=== PATIENT | female | born 1955 | race Caucasian/White ===

== ENCOUNTER 2016-08-01 08:17 | Inpatient (IN) | payer MEDICARE, MEDICAID ==
[2016-08-01] MEDS ORDERED: Sodium Chloride 0.9% 1,000 ML IV SCH ×2 (09:15→10:45)
[2016-08-01] MEDS ORDERED: Acetaminophen 500 MG Tab PO ONE (10:30)
[2016-08-01] MEDS ORDERED: Iopamidol 612 MG/ML 100 ML Bottle IV PRN (11:10)
[2016-08-01] MEDS ORDERED: Sodium Chloride 0.9% 80 ML IV SCH (11:15)
--- NOTE | 2016-08-01 13:57 | EDM.PDOC ---
ED HPI GENERAL MEDICAL PROBLEM - General Chief Complaint: General Stated Complaint: WEAK/COLD SYMPTOMS Time Seen by Provider: 08/01/16 09:05 Source of Information: Reports: Patient History Limitations: Reports: No Limitations - History of Present Illness INITIAL COMMENTS - FREE TEXT/NARRATIVE: History of present illness: [61-year-old female who is presenting from a fpc with a fever and agitation. It's hard to get any good information from her but the staff report that she's not herself and that something is wrong. They also report that if her seizure medications, she is on Keppra and valproic acid, are elevated but sometimes she will get this way. We aren't unable to get much more history other than she's had a cough lately and a runny nose.] Review of systems: As per history of present illness and below otherwise all systems reviewed and negative. Past medical history: As per history of present illness and as reviewed below otherwise noncontributory. Surgical history: As per history of present illness and as reviewed below otherwise noncontributory. Social history: No reported history of drug or alcohol abuse. Family history: As per history of present illness and as reviewed below otherwise noncontributory. Physical exam: HEENT: Atraumatic, normocephalic, pupils reactive, negative for conjunctival pallor or scleral icterus, mucous membranes moist, throat clear, neck supple, nontender, trachea midline. Lungs: She has poor air movement and her lung sounds clear Heart: S1S2, regular, negative Abdomen: Soft, nondistended, nontender. Negative for masses or hepatosplenomegaly. Negative for costovertebral tenderness. Pelvis: Stable nontender. Genitourinary: Deferred. Rectal: Deferred. Extremities: Atraumatic, negative for cords or calf pain. Neurovascular unremarkable. Neuro: Awake, alert,Exam nonfocal. Diagnostics: [CBC shows an elevated white count urine looks clean chest x-ray does show some bilateral hilar congestion or infiltrate bu a chest abdomen and pelvis CT was done and the radiologist made no mention of evidence for pneumonitis. He does see elevation of the left hemidiaphragm with left basilar compressive/ atelectasis/consolidation influenza A and B are negative. Rapid strep is positive.] Therapeutics: [] Impression: [ Strep pharyngitis Agitation do to fever and illness requiring a higher level of care than can be given in the fpc that she's currently in.] Plan: [ I spoke with Dr. Dutton who will come and see her and admit her.] Definitive disposition and diagnosis as appropriate pending reevaluation and review of above. - Related Data Allergies Allergy/AdvReac Type Severity Reaction Status Date / Time carbamazepine [From Tegretol] Allergy Unknown Agitation Verified 08/01/16 08:46 Home Meds: Home Meds Alendronate Sodium [Alendronate] 70 mg PO ASDIRECTED 06/30/13 [History] Furosemide 20 mg PO DAILY 06/30/13 [History] Multivitamin [Multi-Vitamin Daily] 1 each PO DAILY 06/30/13 [History] Polyethylene Glycol 3350 [MiraLAX] 17 gram PO DAILY 06/30/13 [History] Potassium Chloride [Klor-Con 10] 10 meq PO DAILY 06/30/13 [History] levETIRAcetam [Keppra] 2,000 mg PO BID 09/06/13 [History] Calcium Carbonate/Vitamin D3 [Calcium 600 + Vit D Tablet] 1 tab PO BID 12/04/15 [History] Divalproex Sodium [Divalproex Sodium ER] 750 mg PO BID 12/04/15 [History] Levothyroxine 112 mcg PO ACBREAKFAST 12/04/15 [History] Cephalexin 500 mg PO BID #13 capsule 12/06/15 [Rx] Calcium Carbonate/Vitamin D3 [Calcium 500 + Vit D 400] 1.5 each PO 08/01/16 [ History] Past Medical History - Past Health History Medical/Surgical History: Denies Medical/Surgical History HEENT History: Reports: Hard of Hearing Gastrointestinal History: Reports: Other (See Below) Other Gastrointestinal History: incont Genitourinary History: Reports: Urinary Incontinence Musculoskeletal History: Reports: Osteoporosis Other Musculoskeletal History: recent L knee pain past hip surgery Neurological History: Reports: Seizure Other Neuro History: jmild mental retarnation Psychiatric History: Reports: Developmental Delay Endocrine/Metabolic History: Reports: Hypothyroidism Social & Family History - Family History Family Medical History: Unobtainable - Tobacco Use Smoking Status *Q: Never Smoker Second Hand Smoke Exposure: No - Caffeine Use Caffeine Use: Reports: None - Alcohol Use Days Per Week of Alcohol Use: 0 - Recreational Drug Use Recreational Drug Use: No ED ROS GENERAL - Review of Systems Review Of Systems: ROS reveals no pertinent complaints other than HPI. ED EXAM, GENERAL - Physical Exam Exam: See Below Course - Vital Signs Last Recorded V/S: Last Vital Signs Temp 38.6 C H 08/01/16 12:10 Pulse 105 H 08/01/16 12:10 Resp 19 08/01/16 12:10 BP 101/60 08/01/16 12:10 Pulse Ox 91 L 08/01/16 12:10 - Orders/Labs/Meds Orders: Active Orders 24 hr Category Date Time Status Chest 1V Frontal [CR] Stat Exams 08/01/16 09:10 Taken Chest Abdomen Pelvis w Cont [CT] Stat Exams 08/01/16 10:59 Taken CULTURE BLOOD [BC] Stat Lab 08/01/16 09:15 Received CULTURE BLOOD [BC] Stat Lab 08/01/16 09:15 Received KEPPRA [REF] Stat Lab 08/01/16 09:44 Received Iopamidol [Isovue-300 (61%)] Med 08/01/16 11:10 Active 100 ml IV . DIRECTED PRN Sodium Chloride 0.9% [Normal Saline] 1,000 ml Med 08/01/16 10:45 Active IV ASDIRECTED Sodium Chloride 0.9% [Normal Saline] 80 ml Med 08/01/16 11:15 Active IV ASDIRECTED Medication Orders Sodium Chloride (Normal Saline) 1,000 mls @ 500 mls/hr IV ASDIRECTED JAIME Last Admin: 08/01/16 10:45 Dose: 500 mls/hr Sodium Chloride (Normal Saline) 80 mls @ 3 mls/sec IV ASDIRECTED JAIME Last Admin: 08/01/16 11:52 Dose: 3 mls/sec Iopamidol (Isovue-300 (61%)) 100 ml IV . DIRECTED PRN PRN Reason: RADIOLOGY EXAM Stop: 08/02/16 11:11 Last Admin: 08/01/16 11:52 Dose: 100 ml Labs: Laboratory Tests 08/01/16 08/01/16 08/01/16 Range/Units 09:15 09:31 09:31 WBC 15.3 H (4.5-11.0) K/uL RBC 4.57 (3.30-5.50) M/uL Hgb 14.6 (12.0-15.0) g/dL Hct 42.1 (36.0-48.0) % MCV 92 (80-98) fL MCH 32 H (27-31) pg MCHC 35 (32-36) % Plt Count 172 (150-400) K/uL Neut % (Auto) 70 H (36-66) % Lymph % (Auto) 10 L (24-44) % [place] % (Auto) 19 H (2-6) % Eos % (Auto) 0 L (2-4) % Baso % (Auto) 0 (0-1) % Sodium 140 (140-148) mmol/L Potassium 3.9 (3.6-5.2) mmol/L Chloride 102 (100-108) mmol/L Carbon Dioxide 26 (21-32) mmol/L Anion Gap 11.9 (5.0-14.0) mmol/L BUN 16 (7-18) mg/dL Creatinine 1.1 H (0.6-1.0) mg/dL Est Cr Clr Drug Dosing 43.30 mL/min Estimated GFR (MDRD) 50 L (>60) Glucose 112 H (74-106) mg/dL Lactic Acid (0.4-2.0) mmol/L Calcium 8.7 D (8.5-10.1) mg/dL Total Bilirubin 0.4 (0.2-1.0) mg/dL AST 24 (15-37) U/L ALT 30 D (12-78) U/L Alkaline Phosphatase 51 (46-116) U/L Total Protein 7.0 (6.4-8.2) g/dL Albumin 3.3 L (3.4-5.0) g/dL Globulin 3.7 H (2.3-3.5) g/dL Albumin/Globulin Ratio 0.9 L (1.2-2.2) Lipase 191 (73-393) U/L TSH, Ultra Sensitive 1.056 (0.358-3.740) uIU/mL Urine Color Urine Appearance Urine pH (4.5-8.0) Ur Specific [place] (1.008-1.030) Urine Protein (NEGATIVE) mg/dL Urine Glucose (UA) (NEGATIVE) mg/dL Urine Ketones (NEGATIVE) mg/dL Urine Occult Blood (NEGATIVE) Urine Nitrite (NEGATIVE) Urine Bilirubin (NEGATIVE) Urine Urobilinogen (NORMAL) mg/dL Ur Leukocyte Esterase (NEGATIVE) Urine RBC (0-5) Urine WBC (0-5) Ur Epithelial Cells Amorphous Sediment Urine Bacteria Urine Mucus Valproic Acid (50.0-100.0) ug/mL 08/01/16 08/01/16 08/01/16 Range/Units 09:31 09:44 10:38 WBC (4.5-11.0) K/uL RBC (3.30-5.50) M/uL Hgb (12.0-15.0) g/dL Hct (36.0-48.0) % MCV (80-98) fL MCH (27-31) pg MCHC (32-36) % Plt Count (150-400) K/uL Neut % (Auto) (36-66) % Lymph % (Auto) (24-44) % [place] % (Auto) (2-6) % Eos % (Auto) (2-4) % Baso % (Auto) (0-1) % Sodium (140-148) mmol/L Potassium (3.6-5.2) mmol/L Chloride (100-108) mmol/L Carbon Dioxide (21-32) mmol/L Anion Gap (5.0-14.0) mmol/L BUN (7-18) mg/dL Creatinine (0.6-1.0) mg/dL Est Cr Clr Drug Dosing mL/min Estimated GFR (MDRD) (>60) Glucose (74-106) mg/dL Lactic Acid 3.2 H (0.4-2.0) mmol/L Calcium (8.5-10.1) mg/dL Total Bilirubin (0.2-1.0) mg/dL AST (15-37) U/L ALT (12-78) U/L Alkaline Phosphatase (46-116) U/L Total Protein (6.4-8.2) g/dL Albumin (3.4-5.0) g/dL Globulin (2.3-3.5) g/dL Albumin/Globulin Ratio (1.2-2.2) Lipase (73-393) U/L TSH, Ultra Sensitive (0.358-3.740) uIU/mL Urine Color Yellow Urine Appearance Clear Urine pH 9.0 H (4.5-8.0) Ur Specific [place] 1.015 (1.008-1.030) Urine Protein Negative (NEGATIVE) mg/dL Urine Glucose (UA) Normal (NEGATIVE) mg/dL Urine Ketones Negative (NEGATIVE) mg/dL Urine Occult Blood Negative (NEGATIVE) Urine Nitrite Negative (NEGATIVE) Urine Bilirubin Negative (NEGATIVE) Urine Urobilinogen Normal (NORMAL) mg/dL Ur Leukocyte Esterase Negative (NEGATIVE) Urine RBC Not seen (0-5) Urine WBC 0-5 (0-5) Ur Epithelial Cells Not seen Amorphous Sediment Rare Urine Bacteria Not seen Urine Mucus Rare Valproic Acid 125.9 H (50.0-100.0) ug/mL Meds: Medications Generic Name Dose Route Start Last Admin Trade Name Freq PRN Reason Stop Dose Admin Sodium Chloride 1,000 mls @ 500 mls/hr 08/01/16 10:45 08/01/16 10:45 Normal Saline IV 500 mls/hr ASDIRECTED JAIME Administration Sodium Chloride 80 mls @ 3 mls/sec 08/01/16 11:15 08/01/16 11:52 Normal Saline IV 3 mls/sec ASDIRECTED JAIME Administration Iopamidol 100 ml 08/01/16 11:10 08/01/16 11:52 Isovue-300 (61%) IV 08/02/16 11:11 100 ml . DIRECTED PRN Administration RADIOLOGY EXAM Discontinued Medications Generic Name Dose Route Start Last Admin Trade Name Freq PRN Reason Stop Dose Admin Acetaminophen 1,000 mg 08/01/16 10:30 08/01/16 10:43 Tylenol Extra Strength PO 08/01/16 10:31 1,000 mg ONETIME ONE Administration Sodium Chloride 1,000 mls @ 250 mls/hr 08/01/16 09:15 08/01/16 09:28 Normal Saline IV 250 mls/hr ASDIRECTED JAIME Administration Departure - Departure Time of Disposition: 13:57 Disposition: Admitted As Inpatient 64 Condition: good Clinical Impression: Agitation, Strep pharyngitis - Discharge Information Forms: ED Department Discharge - My Orders Last 24 Hours: My Active Orders 08/01/16 09:10 Chest 1V Frontal [CR] Stat 08/01/16 09:15 CULTURE BLOOD [BC] Stat CULTURE BLOOD [BC] Stat 08/01/16 09:44 KEPPRA [REF] Stat 08/01/16 10:45 Sodium Chloride 0.9% [Normal Saline] 1,000 ml IV ASDIRECTED 08/01/16 10:59 Chest Abdomen Pelvis w Cont [CT] Stat 08/01/16 11:10 Iopamidol [Isovue-300 (61%)] 100 ml IV . DIRECTED PRN 08/01/16 11:15 Sodium Chloride 0.9% [Normal Saline] 80 ml IV ASDIRECTED - Assessment/Plan Last 24 Hours: My Active Orders 08/01/16 09:10 Chest 1V Frontal [CR] Stat 08/01/16 09:15 CULTURE BLOOD [BC] Stat CULTURE BLOOD [BC] Stat 08/01/16 09:44 KEPPRA [REF] Stat 08/01/16 10:45 Sodium Chloride 0.9% [Normal Saline] 1,000 ml IV ASDIRECTED 08/01/16 10:59 Chest Abdomen Pelvis w Cont [CT] Stat 08/01/16 11:10 Iopamidol [Isovue-300 (61%)] 100 ml IV . DIRECTED PRN 08/01/16 11:15 Sodium Chloride 0.9% [Normal Saline] 80 ml IV ASDIRECTED
--- NOTE | 2016-08-01 14:49 | PCM.HP ---
H&P History of Present Illness - General Date of Service: 08/01/16 Admit Problem/Dx: Admission Diagnosis/Problem Admission Diagnosis/Problem Pneumonia Source of Information: Family, Provider, RN Notes Reviewed History Limitations: Reports: Altered Mental Status (History congenital cognitive impairment) - History of Present Illness Initial Comments - Free Text/Narative: Ms. Gómez is a 61-year-old woman who lives in one of the local group homes, she is admitted to the hospital for further evaluation and management of sepsis and hypoxic respiratory failure secondary to pneumonia. Staff at the [facility] noted that she has been more lethargic with a cough and increased shortness of breath over the past 2 days. This morning was more weak with agitated and brought into the emergency department for further evaluation. She was noted to have significant temperature elevation on initial assessment associated with tachycardia, hypoxia, and hypotension. Laboratory studies showed elevation in white blood cell count and she's also been found to have been elevated lactic acid level. Chest x-ray shows elevated left a diaphragm with question of possible infiltrate. CT scan of the chest shows compressive atelectasis versus consolidation consistent with infection. CT scan of the abdomen showed no obvious abnormalities in her urinalysis is clear with no evidence of infection. Strep screen did come back positive. - Related Data Allergies/Adverse Reactions: Allergies Allergy/AdvReac Type Severity Reaction Status Date / Time carbamazepine [From Tegretol] Allergy Unknown Agitation Verified 08/01/16 08:46 Home Medications: Home Meds Alendronate Sodium [Alendronate] 70 mg PO ASDIRECTED 06/30/13 [History] Furosemide 20 mg PO DAILY 06/30/13 [History] Multivitamin [Multi-Vitamin Daily] 1 each PO DAILY 06/30/13 [History] Polyethylene Glycol 3350 [MiraLAX] 17 gram PO DAILY 06/30/13 [History] Potassium Chloride [Klor-Con 10] 10 meq PO DAILY 06/30/13 [History] levETIRAcetam [Keppra] 2,000 mg PO BID 09/06/13 [History] Calcium Carbonate/Vitamin D3 [Calcium 600 + Vit D Tablet] 1 tab PO BID 12/04/15 [History] Divalproex Sodium [Divalproex Sodium ER] 750 mg PO BID 12/04/15 [History] Levothyroxine 112 mcg PO ACBREAKFAST 09/29/16 [History] Cephalexin 500 mg PO BID #13 capsule 12/06/15 [Rx] Calcium Carbonate/Vitamin D3 [Calcium 500 + Vit D 400] 1.5 each PO 08/01/16 [ History] Past Medical History - Past Health History Medical/Surgical History: Denies Medical/Surgical History HEENT History: Reports: Hard of Hearing Gastrointestinal History: Reports: Other (See Below) Other Gastrointestinal History: incont Genitourinary History: Reports: Urinary Incontinence Musculoskeletal History: Reports: Osteoporosis Other Musculoskeletal History: recent L knee pain past hip surgery Neurological History: Reports: Seizure Other Neuro History: jmild mental retarnation Psychiatric History: Reports: Developmental Delay Endocrine/Metabolic History: Reports: Hypothyroidism Social & Family History - Family History Family Medical History: Unobtainable - Tobacco Use Smoking Status *Q: Never Smoker Second Hand Smoke Exposure: No - Caffeine Use Caffeine Use: Reports: None - Alcohol Use Days Per Week of Alcohol Use: 0 - Recreational Drug Use Recreational Drug Use: No H&P Review of Systems - Review of Systems: Review Of Systems: Unable To Obtain General: Reports: ROS unobtainable (Congenital cognitive impairment) Exam - Exam Exam: See Below - Vital Signs Vital Signs: Last Vital Signs Temp 99.5 F 08/01/16 12:40 Pulse 97 08/01/16 12:40 Resp 19 08/01/16 12:40 BP 107/67 08/01/16 12:40 Pulse Ox 93 L 08/01/16 12:40 Weight: 160 lb - Exam Quality Assessment: DVT Prophylaxis General: Mild Distress, Lethargic HEENT: Conjunctiva Clear, Normal Nasal Septum, Posterior Pharynx Clear, Pupils Equal, Pupils Reactive. No: Mucosa Moist & [place] Neck: Supple, Trachea Midline, +2 Carotid Pulse wo Bruit Lungs: Rales, Rhonchi. No: Crackles, Rub, Stridor, Wheezing Cardiovascular: Regular Rhythm, Normal S1, Normal S2, Tachycardia. No: Irregular Rhythm, Bradycardia, Systolic Murmur, Diastolic Murmur Abdomen: Normal Bowel Sounds, Soft Back Exam: Normal Inspection, Full Range of Motion, NT Extremities: Normal Inspection Skin: Warm, Dry, Intact Psychiatric: Agitated - Patient Data Lab Results last 24 hrs: Laboratory Results - last 24 hr 08/01/16 08/01/16 08/01/16 Range/Units 09:15 09:31 09:31 WBC 15.3 H (4.5-11.0) K/uL RBC 4.57 (3.30-5.50) M/uL Hgb 14.6 (12.0-15.0) g/dL Hct 42.1 (36.0-48.0) % MCV 92 (80-98) fL MCH 32 H (27-31) pg MCHC 35 (32-36) % Plt Count 172 (150-400) K/uL Neut % (Auto) 70 H (36-66) % Lymph % (Auto) 10 L (24-44) % [place] % (Auto) 19 H (2-6) % Eos % (Auto) 0 L (2-4) % Baso % (Auto) 0 (0-1) % Sodium 140 (140-148) mmol/L Potassium 3.9 (3.6-5.2) mmol/L Chloride 102 (100-108) mmol/L Carbon Dioxide 26 (21-32) mmol/L Anion Gap 11.9 (5.0-14.0) mmol/L BUN 16 (7-18) mg/dL Creatinine 1.1 H (0.6-1.0) mg/dL Est Cr Clr Drug Dosing 43.30 mL/min Estimated GFR (MDRD) 50 L (>60) Glucose 112 H (74-106) mg/dL Lactic Acid (0.4-2.0) mmol/L Calcium 8.7 D (8.5-10.1) mg/dL Total Bilirubin 0.4 (0.2-1.0) mg/dL AST 24 (15-37) U/L ALT 30 D (12-78) U/L Alkaline Phosphatase 51 (46-116) U/L Total Protein 7.0 (6.4-8.2) g/dL Albumin 3.3 L (3.4-5.0) g/dL Globulin 3.7 H (2.3-3.5) g/dL Albumin/Globulin Ratio 0.9 L (1.2-2.2) Lipase 191 (73-393) U/L TSH, Ultra Sensitive 1.056 (0.358-3.740) uIU/mL Urine Color Urine Appearance Urine pH (4.5-8.0) Ur Specific [place] (1.008-1.030) Urine Protein (NEGATIVE) mg/dL Urine Glucose (UA) (NEGATIVE) mg/dL Urine Ketones (NEGATIVE) mg/dL Urine Occult Blood (NEGATIVE) Urine Nitrite (NEGATIVE) Urine Bilirubin (NEGATIVE) Urine Urobilinogen (NORMAL) mg/dL Ur Leukocyte Esterase (NEGATIVE) Urine RBC (0-5) Urine WBC (0-5) Ur Epithelial Cells Amorphous Sediment Urine Bacteria Urine Mucus Valproic Acid (50.0-100.0) ug/mL 08/01/16 08/01/16 08/01/16 Range/Units 09:31 09:44 10:38 WBC (4.5-11.0) K/uL RBC (3.30-5.50) M/uL Hgb (12.0-15.0) g/dL Hct (36.0-48.0) % MCV (80-98) fL MCH (27-31) pg MCHC (32-36) % Plt Count (150-400) K/uL Neut % (Auto) (36-66) % Lymph % (Auto) (24-44) % [place] % (Auto) (2-6) % Eos % (Auto) (2-4) % Baso % (Auto) (0-1) % Sodium (140-148) mmol/L Potassium (3.6-5.2) mmol/L Chloride (100-108) mmol/L Carbon Dioxide (21-32) mmol/L Anion Gap (5.0-14.0) mmol/L BUN (7-18) mg/dL Creatinine (0.6-1.0) mg/dL Est Cr Clr Drug Dosing mL/min Estimated GFR (MDRD) (>60) Glucose (74-106) mg/dL Lactic Acid 3.2 H (0.4-2.0) mmol/L Calcium (8.5-10.1) mg/dL Total Bilirubin (0.2-1.0) mg/dL AST (15-37) U/L ALT (12-78) U/L Alkaline Phosphatase (46-116) U/L Total Protein (6.4-8.2) g/dL Albumin (3.4-5.0) g/dL Globulin (2.3-3.5) g/dL Albumin/Globulin Ratio (1.2-2.2) Lipase (73-393) U/L TSH, Ultra Sensitive (0.358-3.740) uIU/mL Urine Color Yellow Urine Appearance Clear Urine pH 9.0 H (4.5-8.0) Ur Specific [place] 1.015 (1.008-1.030) Urine Protein Negative (NEGATIVE) mg/dL Urine Glucose (UA) Normal (NEGATIVE) mg/dL Urine Ketones Negative (NEGATIVE) mg/dL Urine Occult Blood Negative (NEGATIVE) Urine Nitrite Negative (NEGATIVE) Urine Bilirubin Negative (NEGATIVE) Urine Urobilinogen Normal (NORMAL) mg/dL Ur Leukocyte Esterase Negative (NEGATIVE) Urine RBC Not seen (0-5) Urine WBC 0-5 (0-5) Ur Epithelial Cells Not seen Amorphous Sediment Rare Urine Bacteria Not seen Urine Mucus Rare Valproic Acid 125.9 H (50.0-100.0) ug/mL Result Diagrams: 08/01/16 09:31 08/01/16 09:31 [place] Results last 24 hrs: Microbiology 08/01/16 12:52 Group A Streptococcus Rapid Screen - Final Throat Positive Strep A Screen 08/01/16 12:52 Influenza Type A Antigen Screen - Final Nasal, Unspecified NEGATIVE INFLUENZA A VIRUS AG Influenza Type B Antigen Screen - Final NEGATIVE INFLUENZA B VIRUS AG *Q Meaningful Use (ADM) - VTE *Q VTE Criteria *Q: - VTE Risk Assess *Q Each Risk Factor Represents 1 Point: Sepsis, Less than 1 Month, Serious Lung Disease Including Pneumonia, Less than 1 Month Total Score 1 Point Risk Factors: 2 Each Risk Factor Represents 2 Points: Age 60 - 74 Years Total Score 2 Point Risk Factors: 2 Each Risk Factor Represents 3 Points: None Total Score 3 Point Risk Factors: 0 Each Risk Factor Represents 5 Points: None Total Score 5 Point Risk Factors: 0 Venous Thromboembolism Risk Factor Score *Q: 4 - Stroke *Q Stroke Criteria *Q: - AMI *Q AMI Criteria *Q: Problem List Initiated/Reviewed/Updated: Yes Orders Last 24hrs: Active Orders 24 hr Category Date Time Status Cardiac Monitoring [RC] .As Directed Care 08/01/16 14:27 Ordered Chest 1V Frontal [CR] Stat Exams 08/01/16 09:10 Taken Chest Abdomen Pelvis w Cont [CT] Stat Exams 08/01/16 10:59 Taken CULTURE BLOOD [BC] Stat Lab 08/01/16 09:15 Received CULTURE BLOOD [BC] Stat Lab 08/01/16 09:15 Received KEPPRA [REF] Stat Lab 08/01/16 09:44 Received Iopamidol [Isovue-300 (61%)] Med 08/01/16 11:10 Active 100 ml IV . DIRECTED PRN Sodium Chloride 0.9% [Normal Saline] 1,000 ml Med 08/01/16 10:45 Active IV ASDIRECTED Sodium Chloride 0.9% [Normal Saline] 80 ml Med 08/01/16 11:15 Active IV ASDIRECTED Resuscitation Status Routine Resus Stat 08/01/16 14:29 Ordered Medication Orders Sodium Chloride (Normal Saline) 1,000 mls @ 500 mls/hr IV ASDIRECTED JAIME Last Admin: 08/01/16 10:45 Dose: 500 mls/hr Sodium Chloride (Normal Saline) 80 mls @ 3 mls/sec IV ASDIRECTED JAIME Last Admin: 08/01/16 11:52 Dose: 3 mls/sec Iopamidol (Isovue-300 (61%)) 100 ml IV . DIRECTED PRN PRN Reason: RADIOLOGY EXAM Stop: 08/02/16 11:11 Last Admin: 08/01/16 11:52 Dose: 100 ml Assessment/Plan Comment:: ASSESSMENT AND PLAN LEFT LUNG PNEUMONIA WITH SEPSIS-fever with progressive weakness and respiratory symptoms over the past 2 days. White blood cell count is elevated with elevated lactic acid level, tachycardia and hypotension. Will plan to admit to the intensive care unit for more close monitoring and observation as well as increased spectrum antibiotic therapy because of sepsis. -Vigorous IV fluid replacement for management of sepsis -Recheck lactic acid level later today and again in a.m. -Consider use of norepinephrine if blood pressure does not respond to vigorous fluid replacement -Blood cultures are pending -Broad-spectrum IV antibiotic therapy with Zosyn and levofloxacin HYPOXIC RESPIRATORY FAILURE-secondary to current pneumonia -Supplemental oxygen as needed -Consider use of BiPAP if she experiences further respiratory compromise STREP PHARYNGITIS -Current antibiotic therapy should provide adequate coverage SEIZURE DISORDER -Continue current therapy with Keppra -Hold valproic acid until morning and then restart at a lower dose HYPOTHYROIDISM -Continue outpatient replacement therapy MAINTENANCE ISSUES -DVT prophylaxis; Lovenox 40 mg subcutaneous daily -GI prophylaxis; not indicated -Darnell catheter; not indicated -Nutrition; regular diet -Nicotine dependence; not required CODE STATUS-FULL CODE ADMISSION STATUS-patient will be admitted to inpatient status, expect at least a 2 night hospital stay for evaluation and management of problems as outlined above. At the time of this admission I do not reasonably expected evaluation and management of this problem will require more than a 96 hour hospital stay. DISPOSITION-anticipate discharge to home after the hospital stay. PRIMARY CARE PROVIDER-Dr. Bradley
[2016-08-01] MEDS ORDERED: Ondansetron 4 MG/2 ML SDV IV PRN (15:09)
[2016-08-01] MEDS ORDERED: Magnesium Hydroxide 400 MG/5 ML Susp 30 ML Cup PO PRN (15:09)
[2016-08-01] MEDS ORDERED: Albuterol 0.083% 2.5 MG/3 ML Neb Soln NEB PRN (15:09)
[2016-08-01] MEDS ORDERED: Lactated Ringers 500 ML IV SCH (15:09)
[2016-08-01] MEDS ORDERED: Haloperidol Lactate 5 MG/ML SDV IVPUSH PRN (15:09)
[2016-08-01] MEDS ORDERED: Docusate Sodium 100 MG Cap PO PRN (15:09)
[2016-08-01] MEDS: Piperacillin/Tazobactam/Dext 3.375 GM in Premix Bag 1 BAG IV SCH ×2 (15:32→22:44)
[2016-08-01] MEDS: Albuterol/Ipratropium 3.0-0.5 MG/3 ML Neb Soln NEB SCH ×2 (15:53→22:44)
[2016-08-01] MEDS: Levofloxacin/Dextrose 5%-Water 750 MG in Premix Bag 1 BAG IV SCH (17:00)
[2016-08-01] MEDS: Enoxaparin 40 MG/0.4 ML Syringe SUBCUT SCH (17:06)
[2016-08-01] MEDS: Acetaminophen 325 MG Tab PO PRN (19:23)
[2016-08-01] MEDS ORDERED: Lactated Ringers 1,000 ML IV SCH ×2 (19:30→22:31)
[2016-08-01] MEDS: Melatonin 3 MG Tab PO SCH (22:44)
[2016-08-01] MEDS: levETIRAcetam 250 MG Tab PO SCH (22:44)
[2016-08-02] MEDS: oxyCODONE 5 MG Tab PO PRN ×2 (00:08→20:45)
[2016-08-02] MEDS: Acetaminophen 325 MG Tab PO PRN ×2 (00:08→20:46)
[2016-08-02] MEDS: Piperacillin/Tazobactam/Dext 3.375 GM in Premix Bag 1 BAG IV SCH ×4 (03:49→21:03)
[2016-08-02] MEDS: Albuterol/Ipratropium 3.0-0.5 MG/3 ML Neb Soln NEB SCH ×4 (07:56→20:47)
[2016-08-02] MEDS: Levothyroxine 112 MCG Tab PO SCH (08:27)
[2016-08-02] MEDS: levETIRAcetam 250 MG Tab PO SCH ×2 (08:27→20:47)
[2016-08-02] MEDS: Polyethylene Glycol 3350 Powder 17 GM Packet PO SCH (08:28)
[2016-08-02] MEDS ORDERED: Lactated Ringers 1,000 ML IV SCH (08:30)
--- NOTE | 2016-08-02 09:30 | PCM.PN ---
- General Info Date of Service: 08/02/16 Functional Status: Reports: pain controlled, tolerating diet, urinating - Review of Systems General: Reports: Fever, Weakness Pulmonary: Reports: cough. Denies: sputum, hemoptysis, wheezing Cardiovascular: Reports: No Symptoms Gastrointestinal: Reports: No symptoms Systems Review Comment:: This patient has improved since admission, significant temperature elevation last night but has been afebrile since then. She seems more alert and less agitated. Pressure has been running low this morning prior to that had been within the desired range following fluid resuscitation. - Patient Data Vitals - most recent: Last Vital Signs Temp 98.4 F 08/02/16 05:02 Pulse 80 08/02/16 07:57 Resp 22 H 08/02/16 06:00 BP 84/50 L 08/02/16 06:00 Pulse Ox 90 L 08/02/16 06:00 Weight - most recent: 162 lb I&O - last 24 hours: Intake & Output 08/01/16 08/02/16 08/02/16 22:59 06:59 14:59 Intake Total 1170 1299 Output Total 750 450 Balance 420 849 Lab Results last 24 hrs: Laboratory Results - last 24 hr 08/01/16 08/02/16 08/02/16 Range/Units 20:04 05:10 05:10 WBC 13.5 H (4.5-11.0) K/uL RBC 3.84 (3.30-5.50) M/uL Hgb 12.1 D (12.0-15.0) g/dL Hct 35.9 L (36.0-48.0) % MCV 94 (80-98) fL MCH 32 H (27-31) pg MCHC 34 (32-36) % Plt Count 145 L (150-400) K/uL Neut % (Auto) 66 (36-66) % Lymph % (Auto) 17 L (24-44) % [place] % (Auto) 17 H (2-6) % Eos % (Auto) 0 L (2-4) % Baso % (Auto) 0 (0-1) % Sodium (140-148) mmol/L Potassium (3.6-5.2) mmol/L Chloride (100-108) mmol/L Carbon Dioxide (21-32) mmol/L Anion Gap (5.0-14.0) mmol/L BUN (7-18) mg/dL Creatinine (0.6-1.0) mg/dL Est Cr Clr Drug Dosing mL/min Estimated GFR (MDRD) (>60) Glucose (74-106) mg/dL Lactic Acid 2.9 H 1.5 (0.4-2.0) mmol/L Calcium (8.5-10.1) mg/dL 08/02/16 Range/Units 05:10 WBC (4.5-11.0) K/uL RBC (3.30-5.50) M/uL Hgb (12.0-15.0) g/dL Hct (36.0-48.0) % MCV (80-98) fL MCH (27-31) pg MCHC (32-36) % Plt Count (150-400) K/uL Neut % (Auto) (36-66) % Lymph % (Auto) (24-44) % [place] % (Auto) (2-6) % Eos % (Auto) (2-4) % Baso % (Auto) (0-1) % Sodium 140 (140-148) mmol/L Potassium 3.8 (3.6-5.2) mmol/L Chloride 106 (100-108) mmol/L Carbon Dioxide 25 (21-32) mmol/L Anion Gap 8.6 (5.0-14.0) mmol/L BUN 12 (7-18) mg/dL Creatinine 1.0 (0.6-1.0) mg/dL Est Cr Clr Drug Dosing 47.63 mL/min Estimated GFR (MDRD) 56 L (>60) Glucose 140 H (74-106) mg/dL Lactic Acid (0.4-2.0) mmol/L Calcium 7.4 L (8.5-10.1) mg/dL Med Orders - Current: Current Medications Acetaminophen (Tylenol) 650 mg PO Q4H PRN PRN Reason: Pain (Mild 1-3)/fever Last Admin: 08/02/16 00:08 Dose: 650 mg Albuterol (Proventil Neb Soln) 2.5 mg NEB Q4H PRN PRN Reason: Shortness Of Breath/wheezing Albuterol/Ipratropium (Duoneb 3.0-0.5 Mg/3 Ml) 3 ml NEB QIDRT [facility] Last Admin: 08/02/16 07:56 Dose: 3 ml Docusate Sodium (Colace) 100 mg PO BID PRN PRN Reason: Constipation Enoxaparin Sodium (Lovenox) 40 mg SUBCUT Q24H [facility] Last Admin: 08/01/16 17:06 Dose: 40 mg Haloperidol Lactate (Haldol) 1 mg IVPUSH Q2H PRN PRN Reason: Agitation Levofloxacin/Dextrose 750 mg/ (Premix) 150 mls @ 100 mls/hr IV Q24H [facility] Last Admin: 08/01/16 17:00 Dose: 100 mls/hr Piperacillin/Tazobactam/ (Dextrose 3.375 gm/ Premix) 50 mls @ 100 mls/hr IV Q6H [facility] Last Admin: 08/02/16 03:49 Dose: 100 mls/hr Lactated Ringer's (Ringers, Lactated) 1,000 mls @ 50 mls/hr IV ASDIRECTED [facility] Last Admin: 08/01/16 22:45 Dose: 50 mls/hr Lactated Ringer's (Ringers, Lactated) 1,000 mls @ 500 mls/hr IV ASDIRECTED [facility] Stop: 08/02/16 09:31 Levetiracetam (Keppra) 2,000 mg PO BID [facility] Last Admin: 08/02/16 08:27 Dose: 2,000 mg Levothyroxine Sodium (Levothyroxine) 112 mcg PO ACBREAKFAST [facility] Last Admin: 08/02/16 08:27 Dose: 112 mcg Magnesium Hydroxide (Milk Of Magnesia) 30 ml PO Q12H PRN PRN Reason: Constipation Melatonin (Melatonin) 9 mg PO BEDTIME [facility] Last Admin: 08/01/16 22:44 Dose: 9 mg Ondansetron HCl (Zofran) 4 mg IV Q4H PRN PRN Reason: Nausea/Vomiting Oxycodone HCl (Oxycodone) 5 mg PO Q4H PRN PRN Reason: Pain (moderate 4-6) Last Admin: 08/02/16 00:08 Dose: 5 mg Polyethylene Glycol (Miralax) 17 gm PO DAILY [facility] Last Admin: 08/02/16 08:28 Dose: 17 gm Discontinued Medications Acetaminophen (Tylenol Extra Strength) 1,000 mg PO ONETIME ONE Stop: 08/01/16 10:31 Last Admin: 08/01/16 10:43 Dose: 1,000 mg Sodium Chloride (Normal Saline) 1,000 mls @ 250 mls/hr IV ASDIRECTED [facility] Last Admin: 08/01/16 09:28 Dose: 250 mls/hr Sodium Chloride (Normal Saline) 1,000 mls @ 500 mls/hr IV ASDIRECTED [facility] Last Admin: 08/01/16 10:45 Dose: 500 mls/hr Sodium Chloride (Normal Saline) 80 mls @ 3 mls/sec IV ASDIRECTED [facility] Last Admin: 08/01/16 11:52 Dose: 3 mls/sec Lactated Ringer's (Ringers, Lactated) 500 mls @ 500 mls/hr IV .BOLUS [facility] Stop: 08/01/16 20:10 Last Admin: 08/01/16 16:09 Dose: 500 mls/hr Lactated Ringer's (Ringers, Lactated) 1,000 mls @ 125 mls/hr IV ASDIRECTED [facility] Last Admin: 08/01/16 20:59 Dose: 125 mls/hr Iopamidol (Isovue-300 (61%)) 100 ml IV . DIRECTED PRN PRN Reason: RADIOLOGY EXAM Stop: 08/02/16 11:11 Last Admin: 08/01/16 11:52 Dose: 100 ml - Exam Quality Assessment: supplemental oxygen General: alert, mild distress Lungs: Clear to auscultation, Normal respiratory effort Cardiovascular: Regular Rate, Regular Rhythm, No Murmurs Abdomen: bowel sounds present, soft, no tenderness, no distension Extremities: no edema Skin: warm, dry, intact - Problem List Review Problem List Initiated/Reviewed/Updated: Yes - My Orders Last 24 Hours: My Active Orders 08/01/16 14:29 Resuscitation Status Routine 08/01/16 15:09 Intake and Output [RC] QSHIFT Notify Provider Vital Signs [RC] ASDIRECTED Oxygen Therapy [RC] PRN Pulse Oximetry [RC] CONTINUOUS RT Aerosol Therapy [RC] ASDIRECTED Up With Assistance [RC] ASDIRECTED VTE/DVT Education [RC] Per Unit Routine Vital Signs [RC] Q2H Acetaminophen [Tylenol] 650 mg PO Q4H PRN Albuterol [Proventil Neb Soln] 2.5 mg NEB Q4H PRN Docusate Sodium [Colace] 100 mg PO BID PRN Haloperidol Lactate [Haldol] 1 mg IVPUSH Q2H PRN Magnesium Hydroxide [Milk of Magnesia] 30 ml PO Q12H PRN Ondansetron [Zofran] 4 mg IV Q4H PRN oxyCODONE 5 mg PO Q4H PRN Give supplemental Oxygen PRN [COMM] Routine 08/01/16 16:00 Albuterol/Ipratropium [DuoNeb 3.0-0.5 MG/3 ML] 3 ml NEB QIDRT Piperacillin/Tazobactam/Dext [Zosyn in Dextrose Iso-Osmotic 3.375 GM] 3.375 gm Premix Bag 1 bag IV Q6H 08/01/16 17:00 Levofloxacin/Dextrose 5%-Water [Levaquin in D5W 750 MG/150 ML] 750 mg Premix Bag 1 bag IV Q24H 08/01/16 18:00 Enoxaparin [Lovenox] 40 mg SUBCUT Q24H 08/01/16 21:00 Melatonin 9 mg PO BEDTIME 08/01/16 22:31 Lactated Ringers [Ringers, Lactated] 1,000 ml IV ASDIRECTED 08/01/16 Lunch Regular Diet [DIET] 08/02/16 08:30 Lactated Ringers [Ringers, Lactated] 1,000 ml IV ASDIRECTED 08/03/16 05:00 BASIC METABOLIC PANEL,BMP [CHEM] Timed CBC WITH AUTO DIFF [HEME] Timed - Plan Plan:: ASSESSMENT AND PLAN LEFT LUNG PNEUMONIA WITH SEPSIS-improved since admission and more stable until this morning when blood pressures have been somewhat low. Significant temperature elevation last night, afebrile since then. Lactic acid level has normalized. -Continue IV fluid replacement to maintain adequate blood pressure -Blood cultures pending -Continue current IV antibiotic therapy HYPOXIC RESPIRATORY FAILURE-secondary to current pneumonia -Supplemental oxygen as needed -Consider use of BiPAP if she experiences further respiratory compromise STREP PHARYNGITIS -Current antibiotic therapy should provide adequate coverage SEIZURE DISORDER -Continue current therapy with Keppra -Hold valproic acid until morning and then restart at a lower dose HYPOTHYROIDISM -Continue outpatient replacement therapy MAINTENANCE ISSUES -DVT prophylaxis; Lovenox 40 mg subcutaneous daily -GI prophylaxis; not indicated -Darnell catheter; not indicated -Nutrition; regular diet -Nicotine dependence; not required CODE STATUS-FULL CODE ADMISSION STATUS-patient will be admitted to inpatient status, expect at least a 2 night hospital stay for evaluation and management of problems as outlined above. At the time of this admission I do not reasonably expected evaluation and management of this problem will require more than a 96 hour hospital stay. DISPOSITION-anticipate discharge to home after the hospital stay. PRIMARY CARE PROVIDER-Dr. Bradley
[2016-08-02] MEDS ORDERED: Divalproex Sodium Delayed-Release 250 MG Tab.CR PO SCH (17:00)
[2016-08-02] MEDS: Enoxaparin 40 MG/0.4 ML Syringe SUBCUT SCH (17:15)
[2016-08-02] MEDS: Divalproex Sodium Delayed-Release 250 MG Tab.CR PO SCH (17:15)
[2016-08-02] MEDS: Levofloxacin/Dextrose 5%-Water 750 MG in Premix Bag 1 BAG IV SCH (17:15)
[2016-08-02] MEDS: Melatonin 3 MG Tab PO SCH (20:46)
[2016-08-03] MEDS: Piperacillin/Tazobactam/Dext 3.375 GM in Premix Bag 1 BAG IV SCH ×2 (04:27→10:13)
[2016-08-03] MEDS: Albuterol/Ipratropium 3.0-0.5 MG/3 ML Neb Soln NEB SCH ×4 (07:23→20:58)
[2016-08-03] MEDS: Levothyroxine 112 MCG Tab PO SCH (07:58)
[2016-08-03] MEDS: Divalproex Sodium Delayed-Release 250 MG Tab.CR PO SCH ×2 (07:58→16:03)
[2016-08-03] MEDS: levETIRAcetam 250 MG Tab PO SCH ×2 (08:00→20:58)
--- NOTE | 2016-08-03 09:14 | CR ---
Heart size within normal limits. Of the left hemidiaphragm. Mild increased opacity left lung base wh ich could indicate developing infiltrate or atelectasis. 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
[2016-08-03] MEDS: Polyethylene Glycol 3350 Powder 17 GM Packet PO SCH (10:13)
--- NOTE | 2016-08-03 10:23 | PCM.PN ---
- General Info Date of Service: 08/03/16 Functional Status: Reports: tolerating diet, urinating - Review of Systems General: Reports: Weakness. Denies: Fever, Chills Pulmonary: Reports: no symptoms Cardiovascular: Reports: No Symptoms Gastrointestinal: Reports: No symptoms Systems Review Comment:: Pamela has remained stable over the past 24 hours, blood pressure did dip mildly during the night when she is sleeping. Otherwise vital signs have been stable and she has remained afebrile. Oxygenation has improved and she is no longer requiring supplemental oxygen. Remains fairly weak and currently is requiring assistive of 2 for transfers and ambulation. - Patient Data Vitals - most recent: Last Vital Signs Temp 97.9 F 08/03/16 08:00 Pulse 95 08/03/16 09:49 Resp 18 08/03/16 09:49 BP 96/55 L 08/03/16 09:49 Pulse Ox 93 L 08/03/16 09:49 Weight - most recent: 162 lb I&O - last 24 hours: Intake & Output 08/02/16 08/03/16 08/03/16 22:59 06:59 14:59 Intake Total 320 1916 Output Total 600 150 Balance -280 1766 Lab Results last 24 hrs: Laboratory Results - last 24 hr 08/03/16 08/03/16 Range/Units 05:00 05:00 WBC 8.8 (4.5-11.0) K/uL RBC 3.53 (3.30-5.50) M/uL Hgb 11.3 L (12.0-15.0) g/dL Hct 33.1 L (36.0-48.0) % MCV 94 (80-98) fL MCH 32 H (27-31) pg MCHC 34 (32-36) % Plt Count 132 L (150-400) K/uL Neut % (Auto) 61 (36-66) % Lymph % (Auto) 21 L (24-44) % [place] % (Auto) 16 H (2-6) % Eos % (Auto) 1 L (2-4) % Baso % (Auto) 0 (0-1) % Sodium 139 L (140-148) mmol/L Potassium 3.8 (3.6-5.2) mmol/L Chloride 106 (100-108) mmol/L Carbon Dioxide 27 (21-32) mmol/L Anion Gap 9.8 (5.0-14.0) mmol/L BUN 9 (7-18) mg/dL Creatinine 0.8 (0.6-1.0) mg/dL Est Cr Clr Drug Dosing 59.54 mL/min Estimated GFR (MDRD) > 60 (>60) Glucose 121 H (74-106) mg/dL Calcium 7.3 L (8.5-10.1) mg/dL Med Orders - Current: Current Medications Acetaminophen (Tylenol) 650 mg PO Q4H PRN PRN Reason: Pain (Mild 1-3)/fever Last Admin: 08/02/16 20:46 Dose: 650 mg Albuterol (Proventil Neb Soln) 2.5 mg NEB Q4H PRN PRN Reason: Shortness Of Breath/wheezing Albuterol/Ipratropium (Duoneb 3.0-0.5 Mg/3 Ml) 3 ml NEB QIDRT [facility] Last Admin: 08/03/16 07:23 Dose: 3 ml Divalproex Sodium (Divalproex Sodium) 500 mg PO BIDMEALS [facility] Last Admin: 08/03/16 07:58 Dose: 500 mg Docusate Sodium (Colace) 100 mg PO BID PRN PRN Reason: Constipation Enoxaparin Sodium (Lovenox) 40 mg SUBCUT Q24H [facility] Last Admin: 08/02/16 17:15 Dose: 40 mg Haloperidol Lactate (Haldol) 1 mg IVPUSH Q2H PRN PRN Reason: Agitation Levofloxacin/Dextrose 750 mg/ (Premix) 150 mls @ 100 mls/hr IV Q24H [facility] Last Admin: 08/02/16 17:15 Dose: 100 mls/hr Levetiracetam (Keppra) 2,000 mg PO BID [facility] Last Admin: 08/03/16 08:00 Dose: 2,000 mg Levothyroxine Sodium (Levothyroxine) 112 mcg PO ACBREAKFAST [facility] Last Admin: 08/03/16 07:58 Dose: 112 mcg Magnesium Hydroxide (Milk Of Magnesia) 30 ml PO Q12H PRN PRN Reason: Constipation Melatonin (Melatonin) 9 mg PO BEDTIME [facility] Last Admin: 08/02/16 20:46 Dose: 9 mg Ondansetron HCl (Zofran) 4 mg IV Q4H PRN PRN Reason: Nausea/Vomiting Last Admin: 08/02/16 11:19 Dose: 4 mg Oxycodone HCl (Oxycodone) 5 mg PO Q4H PRN PRN Reason: Pain (moderate 4-6) Last Admin: 08/02/16 20:45 Dose: 5 mg Polyethylene Glycol (Miralax) 17 gm PO DAILY [facility] Last Admin: 08/03/16 10:13 Dose: 17 gm Discontinued Medications Acetaminophen (Tylenol Extra Strength) 1,000 mg PO ONETIME ONE Stop: 08/01/16 10:31 Last Admin: 08/01/16 10:43 Dose: 1,000 mg Divalproex Sodium (Divalproex Sodium) 500 mg PO BIDMEALS [facility] Sodium Chloride (Normal Saline) 1,000 mls @ 250 mls/hr IV ASDIRECTED [facility] Last Admin: 08/01/16 09:28 Dose: 250 mls/hr Sodium Chloride (Normal Saline) 1,000 mls @ 500 mls/hr IV ASDIRECTED [facility] Last Admin: 08/01/16 10:45 Dose: 500 mls/hr Sodium Chloride (Normal Saline) 80 mls @ 3 mls/sec IV ASDIRECTED [facility] Last Admin: 08/01/16 11:52 Dose: 3 mls/sec Lactated Ringer's (Ringers, Lactated) 500 mls @ 500 mls/hr IV .BOLUS [facility] Stop: 08/01/16 20:10 Last Admin: 08/01/16 16:09 Dose: 500 mls/hr Lactated Ringer's (Ringers, Lactated) 1,000 mls @ 125 mls/hr IV ASDIRECTED [facility] Last Admin: 08/01/16 20:59 Dose: 125 mls/hr Piperacillin/Tazobactam/ (Dextrose 3.375 gm/ Premix) 50 mls @ 100 mls/hr IV Q6H [facility] Last Admin: 08/03/16 10:13 Dose: 100 mls/hr Lactated Ringer's (Ringers, Lactated) 1,000 mls @ 50 mls/hr IV ASDIRECTED [facility] Last Admin: 08/01/16 22:45 Dose: 50 mls/hr Lactated Ringer's (Ringers, Lactated) 1,000 mls @ 500 mls/hr IV ASDIRECTED [facility] Stop: 08/02/16 09:31 Iopamidol (Isovue-300 (61%)) 100 ml IV . DIRECTED PRN PRN Reason: RADIOLOGY EXAM Stop: 08/02/16 11:11 Last Admin: 08/01/16 11:52 Dose: 100 ml - Exam Quality Assessment: DVT prophylaxis General: alert, cooperative, no acute distress Lungs: Clear to auscultation, Normal respiratory effort Cardiovascular: Regular Rate, Regular Rhythm, No Murmurs Abdomen: bowel sounds present, soft, no tenderness, no distension Extremities: no edema Skin: warm, dry, intact - Problem List Review Problem List Initiated/Reviewed/Updated: Yes - My Orders Last 24 Hours: My Active Orders 08/02/16 09:31 Divalproex Sodium 500 mg PO BIDMEALS 08/03/16 10:18 Cardiac Monitoring Discontinue [RC] Click to Edit Vital Signs [RC] Q4H Convert IV to Saline Lock [OM.PC] Routine - Plan Plan:: ASSESSMENT AND PLAN LEFT LUNG PNEUMONIA WITH SEPSIS-remains stable, no significant respiratory compromise or hemodynamic instability -Saline lock IV -Blood cultures negative thus far -Continue IV levofloxacin, discontinue Zosyn HYPOXIC RESPIRATORY FAILURE-secondary to current pneumonia, no longer requiring supplemental oxygen -Continue to monitor STREP PHARYNGITIS -Current antibiotic therapy should provide adequate coverage SEIZURE DISORDER -Continue current therapy with Keppra -Continue valproic acid at 500 mg by mouth twice a day HYPOTHYROIDISM -Continue outpatient replacement therapy MAINTENANCE ISSUES -DVT prophylaxis; Lovenox 40 mg subcutaneous daily -GI prophylaxis; not indicated -Darnell catheter; not indicated -Nutrition; regular diet -Nicotine dependence; not required CODE STATUS-FULL CODE ADMISSION STATUS-patient will be admitted to inpatient status, expect at least a 2 night hospital stay for evaluation and management of problems as outlined above. At the time of this admission I do not reasonably expected evaluation and management of this problem will require more than a 96 hour hospital stay. DISPOSITION-anticipate discharge back to long term tomorrow PRIMARY CARE PROVIDER-Dr. Bradley
[2016-08-03] MEDS: Levofloxacin/Dextrose 5%-Water 750 MG in Premix Bag 1 BAG IV SCH (16:03)
[2016-08-03] MEDS: Enoxaparin 40 MG/0.4 ML Syringe SUBCUT SCH (17:36)
[2016-08-03] MEDS: Melatonin 3 MG Tab PO SCH (20:58)
[2016-08-04] MEDS: Albuterol/Ipratropium 3.0-0.5 MG/3 ML Neb Soln NEB SCH ×2 (07:18→10:38)
[2016-08-04] MEDS: Divalproex Sodium Delayed-Release 250 MG Tab.CR PO SCH (07:27)
[2016-08-04] MEDS: Levothyroxine 112 MCG Tab PO SCH (07:27)
[2016-08-04] MEDS: levETIRAcetam 250 MG Tab PO SCH (08:04)
[2016-08-04] MEDS: Polyethylene Glycol 3350 Powder 17 GM Packet PO SCH (08:04)
[2016-08-04 09:57] VITALS: BP 103/60
--- NOTE | 2016-08-04 12:48 | PCM.DCSUM1 ---
Discharge Summary - Hospital Course Brief History: This patient is a 61-year-old woman who was brought into the emergency department with increase in agitation, cough, and shortness of breath. On evaluation was found to have evidence of pneumonia as well as early sepsis. - Discharge Data Discharge Date: 08/04/16 Discharge Disposition: DC/Tfer to [facility] [place] Condition: Fair - Discharge Diagnosis/Problem(s) (1) Pneumonia SNOMED Code(s): 120133741 ICD Code: J18.9 - PNEUMONIA, UNSPECIFIED ORGANISM Status: Acute Current Visit: Yes (2) Sepsis SNOMED Code(s): 34706278 ICD Code: A41.9 - SEPSIS, UNSPECIFIED ORGANISM Status: Acute Current Visit: Yes (3) Seizure disorder SNOMED Code(s): 476785644 ICD Code: G40.909 - EPILEPSY, UNSP, NOT INTRACTABLE, WITHOUT STATUS EPILEPTICUS Status: Chronic Current Visit: No - Patient Summary/Data Consults: Consultations 08/03/16 11:45 Consult to Physical Therapy [PT Evaluation and Treatment] [CONS] Routine Please Evaluate and Treat. PT Reason for Consult: Ambulation This query below is only for informational purposes and is not editable. 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 Staff at the halfway and noted that she was more lethargic with intermittent episodes of agitation. Also developed a cough and shortness of breath. On evaluation in the emergency department was tachycardic with borderline blood pressures and a mild elevation in lactic acid level. Chest x-ray showed no obvious abnormalities. CT scan of the chest did show evidence of a left lung infiltrate, this was associated with elevation in white blood cell count. Blood cultures were obtained at the time of admission and she was started on IV fluids as well as IV antibiotic therapy with levofloxacin. Blood culture remained negative throughout her hospital stay. With this management she improved significantly over the next few days of her hospitalization and appeared to be back to baseline by the time of discharge. Activity will be as tolerated and she will resume her usual diet. She will be discharged home with an additional 4 days of oral levofloxacin. Her valproic acid level was found to be elevated the time of admission and her dose of Depakote was decreased to 500 mg twice daily. Followup appointment will be scheduled with Dr. Bradley within one week and a chest x-ray will be obtained at the time of that appointment. - Patient Instructions Diet: Usual Diet as Tolerated Activity: As Tolerated Other/Special Instructions: Please schedule followup appointment with Dr. Bradley within one week. At the time of followup appointment obtain chest x-ray for followup of infiltrate. - Discharge Plan Prescriptions/Med Rec: Levofloxacin [Levaquin] 750 mg PO Q24H #4 tablet Home Medications: Home Meds Alendronate Sodium [Alendronate] 70 mg PO ASDIRECTED 06/30/13 [History] Furosemide 20 mg PO DAILY 06/30/13 [History] Multivitamin [Multi-Vitamin Daily] 1 each PO DAILY 06/30/13 [History] Polyethylene Glycol 3350 [MiraLAX] 17 gram PO DAILY 06/30/13 [History] Potassium Chloride [Klor-Con 10] 10 meq PO DAILY 06/30/13 [History] levETIRAcetam [Keppra] 2,000 mg PO BID 09/06/13 [History] Calcium Carbonate/Vitamin D3 [Calcium 600 + Vit D Tablet] 1 tab PO BID 12/04/15 [History] Divalproex Sodium [Divalproex Sodium ER] 750 mg PO BID 12/04/15 [History] Levothyroxine 112 mcg PO ACBREAKFAST 12/04/15 [History] Calcium Carbonate/Vitamin D3 [Calcium 500 + Vit D 400] 1.5 each PO 08/01/16 [ History] Divalproex Sodium 500 mg PO BIDMEALS tab.cr 08/04/16 [Rx] Levofloxacin [Levaquin] 750 mg PO Q24H #4 tablet 08/04/16 [Rx] Referrals: Quinton Bradley MD [Primary Care Provider] - - Patient Data Vitals - Most Recent: Last Vital Signs Temp 97.5 F 08/04/16 09:56 Pulse 62 08/04/16 10:41 Resp 16 08/04/16 09:56 BP 103/60 08/04/16 09:56 Pulse Ox 93 L 08/04/16 10:41 Weight - Most Recent: 169 lb I&O - Last 24 hours: Intake & Output 08/03/16 08/04/16 08/04/16 22:59 06:59 14:59 Intake Total 680 240 Output Total 950 1025 Balance -270 -1025 240 Med Orders - Current: Current Medications Acetaminophen (Tylenol) 650 mg PO Q4H PRN PRN Reason: Pain (Mild 1-3)/fever Last Admin: 08/02/16 20:46 Dose: 650 mg Albuterol (Proventil Neb Soln) 2.5 mg NEB Q4H PRN PRN Reason: Shortness Of Breath/wheezing Albuterol/Ipratropium (Duoneb 3.0-0.5 Mg/3 Ml) 3 ml NEB QIDRT [facility] Last Admin: 08/04/16 10:38 Dose: 3 ml Divalproex Sodium (Divalproex Sodium) 500 mg PO BIDMEALS [facility] Last Admin: 08/04/16 07:27 Dose: 500 mg Docusate Sodium (Colace) 100 mg PO BID PRN PRN Reason: Constipation Enoxaparin Sodium (Lovenox) 40 mg SUBCUT Q24H [facility] Last Admin: 08/03/16 17:36 Dose: 40 mg Haloperidol Lactate (Haldol) 1 mg IVPUSH Q2H PRN PRN Reason: Agitation Levofloxacin/Dextrose 750 mg/ (Premix) 150 mls @ 100 mls/hr IV Q24H [facility] Last Admin: 08/03/16 16:03 Dose: 100 mls/hr Levetiracetam (Keppra) 2,000 mg PO BID [facility] Last Admin: 08/04/16 08:04 Dose: 2,000 mg Levothyroxine Sodium (Levothyroxine) 112 mcg PO ACBREAKFAST [facility] Last Admin: 08/04/16 07:27 Dose: 112 mcg Magnesium Hydroxide (Milk Of Magnesia) 30 ml PO Q12H PRN PRN Reason: Constipation Melatonin (Melatonin) 9 mg PO BEDTIME [facility] Last Admin: 08/03/16 20:58 Dose: 9 mg Ondansetron HCl (Zofran) 4 mg IV Q4H PRN PRN Reason: Nausea/Vomiting Last Admin: 08/02/16 11:19 Dose: 4 mg Oxycodone HCl (Oxycodone) 5 mg PO Q4H PRN PRN Reason: Pain (moderate 4-6) Last Admin: 08/02/16 20:45 Dose: 5 mg Polyethylene Glycol (Miralax) 17 gm PO DAILY [facility] Last Admin: 08/04/16 08:04 Dose: 17 gm Discontinued Medications Acetaminophen (Tylenol Extra Strength) 1,000 mg PO ONETIME ONE Stop: 08/01/16 10:31 Last Admin: 08/01/16 10:43 Dose: 1,000 mg Divalproex Sodium (Divalproex Sodium) 500 mg PO BIDMEALS [facility] Sodium Chloride (Normal Saline) 1,000 mls @ 250 mls/hr IV ASDIRECTED [facility] Last Admin: 08/01/16 09:28 Dose: 250 mls/hr Sodium Chloride (Normal Saline) 1,000 mls @ 500 mls/hr IV ASDIRECTED [facility] Last Admin: 08/01/16 10:45 Dose: 500 mls/hr Sodium Chloride (Normal Saline) 80 mls @ 3 mls/sec IV ASDIRECTED [facility] Last Admin: 08/01/16 11:52 Dose: 3 mls/sec Lactated Ringer's (Ringers, Lactated) 500 mls @ 500 mls/hr IV .BOLUS [facility] Stop: 08/01/16 20:10 Last Admin: 08/01/16 16:09 Dose: 500 mls/hr Lactated Ringer's (Ringers, Lactated) 1,000 mls @ 125 mls/hr IV ASDIRECTED [facility] Last Admin: 08/01/16 20:59 Dose: 125 mls/hr Piperacillin/Tazobactam/ (Dextrose 3.375 gm/ Premix) 50 mls @ 100 mls/hr IV Q6H [facility] Last Admin: 08/03/16 10:13 Dose: 100 mls/hr Lactated Ringer's (Ringers, Lactated) 1,000 mls @ 50 mls/hr IV ASDIRECTED [facility] Last Admin: 08/01/16 22:45 Dose: 50 mls/hr Lactated Ringer's (Ringers, Lactated) 1,000 mls @ 500 mls/hr IV ASDIRECTED [facility] Stop: 08/02/16 09:31 Iopamidol (Isovue-300 (61%)) 100 ml IV . DIRECTED PRN PRN Reason: RADIOLOGY EXAM Stop: 08/02/16 11:11 Last Admin: 08/01/16 11:52 Dose: 100 ml *Q Meaningful Use (DIS) - VTE *Q VTE Criteria *Q: - Stroke *Q Stroke Criteria *Q: - AMI *Q AMI Criteria *Q:
== END 2016-08-04 15:07 | DRG 871 ==
LOC: JP.ED 08:17 → JP.ICU 14:27 → UNDOADMIN 14:27 → JP.ICU 15:09 → JP.MS 08-03 10:26 → JP.ICU 08-03 10:26 → UNDODISIN 08-04 15:07
PROVIDERS: ADMIT Hospitalist; ATTEND Hospitalist
DX: A41.9 Sepsis, unspecified organism (principal); J18.9 Pneumonia, unspecified organism; J96.91 Respiratory failure, unspecified with hypoxia; J02.0 Streptococcal pharyngitis; R74.0 Nonspecific elevation of levels of transaminase and lactic acid dehydrogenase [LDH]; F70 Mild intellectual disabilities; G40.909 Epilepsy, unspecified, not intractable, without status epilepticus; R50.9 Fever, unspecified; R53.1 Weakness; R45.1 Restlessness and agitation; E03.9 Hypothyroidism, unspecified; H91.90 Unspecified hearing loss, unspecified ear; R32 Unspecified urinary incontinence; Z88.8 Allergy status to other drugs, medicaments and biological substances
CPT/HCPCS: 36415; 71010; 71010-26; 71260; 74177; 80048; 80053; 80164; 80177; 81001; 83605; 83690; 84443; 85025; 87040; 87430; 87804; 94640-76; 96360; 96361; 97162-GP; 99285; 99285-25; A9270-GY; J1650; J1956; J2405; J2543; J7030; J7040; J7120; J7620; Q9967

== ENCOUNTER 2019-06-04 11:33 | Emergency (ER) | payer MEDICARE, MEDICAID ==
[2019-06-04 11:46] VITALS: BP 128/73; PULSE 81
[2019-06-04] MEDS ORDERED: Sodium Chloride 0.9% 10 ML Syringe FLUSH PRN ×2 (12:26→13:20)
--- NOTE | 2019-06-04 12:31 | EDM.PDOC ---
ED HPI GENERAL MEDICAL PROBLEM - General Chief Complaint: ENT Problem Stated Complaint: LEFT EYE POSSIBLE CELLULITIS Time Seen by Provider: 06/04/19 12:15 Source of Information: Reports: Patient, Family, Provider, RN Notes Reviewed History Limitations: Reports: Physical Impairment - History of Present Illness INITIAL COMMENTS - FREE TEXT/NARRATIVE: 64-year-old female presents emergency department today sent over from clinic for facial redness and concern for orbital cellulitis. This patient is from a residential she is developmentally delayed difficult to communicate most of it is done through the white board. Per report from staff she recently had a sinus infection last weekend over the weekend she developed some redness in the left eye but the last 24 hours she seen redness around the left eye with some edema to the point where she can no longer smile symmetrically. She has not had any fevers or any other symptoms. There is a complaint that she is unable to see out of the left eye but is still able to point to. - Related Data Allergies Allergy/AdvReac Type Severity Reaction Status Date / Time carbamazepine [From Tegretol] Allergy Unknown Agitation Verified 06/04/19 12:06 Home Meds: Home Meds Alendronate Sodium [Alendronate] 70 mg PO ASDIRECTED 06/30/13 [History] Furosemide 20 mg PO DAILY 06/30/13 [History] Multivitamin [Multi-Vitamin Daily] 1 each PO DAILY 06/30/13 [History] Potassium Chloride [Klor-Con 10] 10 meq PO DAILY 06/30/13 [History] polyethylene glycoL 3350 [MiraLAX] 17 gram PO DAILY 06/30/13 [History] levETIRAcetam [Keppra] 2,000 mg PO BID 09/06/13 [History] Calcium Carbonate/Vitamin D3 [Calcium 600 + Vit D Tablet] 1 tab PO BID 12/04/15 [History] Divalproex Sodium [Divalproex Sodium ER] 500 mg PO BID 12/04/15 [History] Levothyroxine 112 mcg PO ACBREAKFAST 12/04/15 [History] Sulfamethoxazole/Trimethoprim [Bactrim Ds Tablet] 1 each PO BID #20 tablet 06/03 [Rx] Past Medical History HEENT History: Reports: Hard of Hearing Gastrointestinal History: Reports: Other (See Below) Other Gastrointestinal History: incont Genitourinary History: Reports: Urinary Incontinence Musculoskeletal History: Reports: Osteoporosis Other Musculoskeletal History: recent L knee pain past hip surgery Neurological History: Reports: Seizure Other Neuro History: mild mental disability Psychiatric History: Reports: Developmental Delay Endocrine/Metabolic History: Reports: Hypothyroidism - Past Surgical History Musculoskeletal Surgical History: Reports: Other (See Below) Other Musculoskeletal Surgeries/Procedures:: hip fx repair Social & Family History - Family History Family Medical History: Unobtainable - Tobacco Use Smoking Status *Q: Never Smoker Second Hand Smoke Exposure: No - Caffeine Use Caffeine Use: Reports: None - Recreational Drug Use Recreational Drug Use: No ED ROS ENT - Review of Systems Review Of Systems: See Below Constitutional: Denies: Fever, Chills HEENT: Reports: Eye Discharge, Vision Change. Denies: Eye Pain Respiratory: Reports: No Symptoms Cardiovascular: Reports: No Symptoms GI/Abdominal: Reports: No Symptoms Skin: Reports: Pallor, Rash, Erythema ED EXAM, ENT - Physical Exam Exam: See Below Text/Narrative:: Examination of the face I do appreciate some erythema that encompasses predominantly the left orbit up into the forehead and down into the cheek there is appreciable edema as well eyes pupils equal round reactive to light extraocular eye movements were tested but limited due to the physical disability. Significant conjunctiva is appreciated in the left eye no discharge is noted Exam Limited By: Physical Impairment General Appearance: Alert, No Apparent Distress Respiratory/Chest: No Respiratory Distress, Lungs Clear, Normal Breath Sounds, No Accessory Muscle Use, Chest Non-Tender Cardiovascular: Regular Rate, Rhythm, No Murmur Course - Vital Signs Last Recorded V/S: Last Vital Signs Temp 96.2 F L 06/04/19 12:02 Pulse 81 06/04/19 12:02 Resp 20 06/04/19 12:02 BP 128/73 06/04/19 12:02 Pulse Ox 96 06/04/19 12:02 - Orders/Labs/Meds Orders: Active Orders 24 hr Category Date Time Status Peripheral IV Care [RC] . DIRECTED Care 06/04/19 12:27 Active Sodium Chloride 0.9% [Saline Flush] Med 06/04/19 12:26 Active 10 ml FLUSH ASDIRECTED PRN Sodium Chloride 0.9% [Saline Flush] Med 06/04/19 13:20 Active 10 ml FLUSH ONETIME PRN Peripheral IV Insertion Adult [OM.PC] Urgent Oth 06/04/19 12:24 Ordered Medication Orders Sodium Chloride (Saline Flush) 10 ml FLUSH ASDIRECTED PRN PRN Reason: Keep Vein Open Last Admin: 06/04/19 12:44 Dose: 10 ml Sodium Chloride (Saline Flush) 10 ml FLUSH ONETIME PRN PRN Reason: PER RADIOLOGY PROTOCOL Last Admin: 06/04/19 13:25 Dose: 10 ml Labs: Laboratory Tests 06/04/19 06/04/19 06/04/19 Range/Units 12:24 12:24 12:26 WBC 9.6 (4.5-11.0) K/uL RBC 4.89 (3.30-5.50) M/uL Hgb 14.8 D (12.0-15.0) g/dL Hct 44.0 (36.0-48.0) % MCV 90 (80-98) fL MCH 30 (27-31) pg MCHC 34 (32-36) % Plt Count 276 (150-400) K/uL Neut % (Auto) 55 (36-66) % Lymph % (Auto) 31 (24-44) % [place] % (Auto) 11 H (2-6) % Eos % (Auto) 1 L (2-4) % Baso % (Auto) 1 (0-1) % Sodium 143 (140-148) mmol/L Potassium 4.3 (3.6-5.2) mmol/L Chloride 106 (100-108) mmol/L Carbon Dioxide 26 (21-32) mmol/L Anion Gap 11.3 (5.0-14.0) mmol/L BUN 22 H D (7-18) mg/dL Creatinine 0.9 (0.6-1.0) mg/dL Est Cr Clr Drug Dosing 48.63 mL/min Estimated GFR (MDRD) > 60 (>60) Glucose 97 (74-106) mg/dL Lactic Acid 1.6 (0.4-2.0) mmol/L Calcium 10.0 D (8.5-10.1) mg/dL Total Bilirubin 0.4 (0.2-1.0) mg/dL AST 15 (15-37) U/L ALT 27 (12-78) U/L Alkaline Phosphatase 47 (46-116) U/L C-Reactive Protein (0.0-0.3) mg/dL Total Protein 7.1 (6.4-8.2) g/dL Albumin 3.7 (3.4-5.0) g/dL Globulin 3.4 (2.3-3.5) g/dL Albumin/Globulin Ratio 1.1 L (1.2-2.2) Procalcitonin ng/mL 06/04/19 06/04/19 Range/Units 12:26 12:26 WBC (4.5-11.0) K/uL RBC (3.30-5.50) M/uL Hgb (12.0-15.0) g/dL Hct (36.0-48.0) % MCV (80-98) fL MCH (27-31) pg MCHC (32-36) % Plt Count (150-400) K/uL Neut % (Auto) (36-66) % Lymph % (Auto) (24-44) % [place] % (Auto) (2-6) % Eos % (Auto) (2-4) % Baso % (Auto) (0-1) % Sodium (140-148) mmol/L Potassium (3.6-5.2) mmol/L Chloride (100-108) mmol/L Carbon Dioxide (21-32) mmol/L Anion Gap (5.0-14.0) mmol/L BUN (7-18) mg/dL Creatinine (0.6-1.0) mg/dL Est Cr Clr Drug Dosing mL/min Estimated GFR (MDRD) (>60) Glucose (74-106) mg/dL Lactic Acid (0.4-2.0) mmol/L Calcium (8.5-10.1) mg/dL Total Bilirubin (0.2-1.0) mg/dL AST (15-37) U/L ALT (12-78) U/L Alkaline Phosphatase (46-116) U/L C-Reactive Protein 0.39 H (0.0-0.3) mg/dL Total Protein (6.4-8.2) g/dL Albumin (3.4-5.0) g/dL Globulin (2.3-3.5) g/dL Albumin/Globulin Ratio (1.2-2.2) Procalcitonin < 0.05 ng/mL Meds: Medications Generic Name Dose Route Start Last Admin Trade Name Freq PRN Reason Stop Dose Admin Sodium Chloride 10 ml 06/04/19 12:26 06/04/19 12:44 Saline Flush FLUSH 10 ml ASDIRECTED PRN Administration Keep Vein Open Sodium Chloride 10 ml 06/04/19 13:20 06/04/19 13:25 Saline Flush FLUSH 10 ml ONETIME PRN Administration PER RADIOLOGY PROTOCOL Discontinued Medications Generic Name Dose Route Start Last Admin Trade Name Marino PRN Reason Stop Dose Admin Sodium Chloride 75 mls @ 3 mls/sec 06/04/19 13:20 06/04/19 13:24 Normal Saline IV 06/04/19 13:21 3 mls/sec ONETIME ONE Administration Iopamidol 100 ml 06/04/19 13:20 06/04/19 13:25 Isovue-300 (61%) IV 100 ml . DIRECTED PRN Administration RADIOLOGY EXAM Departure - Departure Time of Disposition: 14:17 Disposition: Home, Self-Care 01 Condition: Fair Clinical Impression: Preseptal cellulitis of left lower eyelid - Discharge Information Prescriptions: Sulfamethoxazole/Trimethoprim [Bactrim Ds Tablet] 1 each PO BID #20 tablet Instructions: Preseptal Cellulitis, Adult Referrals: Quinton Bradley MD [Primary Care Provider] - Forms: ED Department Discharge Additional Instructions: Take full course of antibiotics, your medications have been faxed to [facility] pharmacy please follow-up with your primary care provider in the next 2 to 3 days for reevaluation Sepsis Event Note - Evaluation Sepsis Screening Result: No Definite Risk - Focused Exam Vital Signs: Vital Signs Temp Pulse Resp BP Pulse Ox 06/04/19 12:02 96.2 F L 81 20 128/73 96 06/04/19 11:45 96.2 F L 81 20 128/73 96 Date Exam was Performed: 06/04/19 Time Exam was Performed: 14:16 - My Orders Last 24 Hours: My Active Orders 06/04/19 12:24 Peripheral IV Insertion Adult [OM.PC] Urgent 06/04/19 12:26 Sodium Chloride 0.9% [Saline Flush] 10 ml FLUSH ASDIRECTED PRN 06/04/19 12:27 Peripheral IV Care [RC] . DIRECTED 06/04/19 13:20 Sodium Chloride 0.9% [Saline Flush] 10 ml FLUSH ONETIME PRN - Assessment/Plan Last 24 Hours: My Active Orders 06/04/19 12:24 Peripheral IV Insertion Adult [OM.PC] Urgent 06/04/19 12:26 Sodium Chloride 0.9% [Saline Flush] 10 ml FLUSH ASDIRECTED PRN 06/04/19 12:27 Peripheral IV Care [RC] . DIRECTED 06/04/19 13:20 Sodium Chloride 0.9% [Saline Flush] 10 ml FLUSH ONETIME PRN Plan: Assessment Acuity = acute Site and laterality = preseptal cellulitis Etiology = probable bacterial cause Manifestations = facial swelling Location of injury = Home Lab values = CBC, CMP, CRP, procalcitonin unremarkable lactic acid within normal limits CT scan describes no abscess formation soft tissue edema Plan Prescription sent to [facility] pharmacy Bactrim DS 1 tab p.o. twice daily x10 days follow-up primary care 2 to 3 days for reevaluation This note was dictated using [employer] voice recognition software please call with any questions on syntax or grammar.
[2019-06-04] MEDS ORDERED: Sodium Chloride 0.9% 75 ML IV ONE (13:20)
[2019-06-04] MEDS ORDERED: Iopamidol 612 MG/ML 100 ML Bottle IV PRN (13:20)
--- NOTE | 2019-06-04 13:48 | CT ---
Max Facial Sinus w Cont : TECHNIQUE: Axial tomographic images were obtained from the upper calvarium through the upper neck postintravenous iodinated contrast enhancement. Auto dosage reduction and iterative reconstruction techniques employed. CLINICAL HISTORY: Left facial swelling FINDINGS: No osseous lesions are identified. The maxillary alveolar ridge shows no evidence of bony lysis or dental lesion. The paranasal sinuses are clear. The orbital contents are symmetric and well demarcated bilaterally. There is some soft tissue edema in the left periorbital region. There is no abnormal fluid collection IMPRESSION: Mild left periorbital soft tissue edema in the lateral and infra orbital region with no evidence of abscess formation No osseous or dental lesion identified in the maxilla
== END 2019-06-04 14:41 | disposition home or self-care (01) ==
LOC: JP.ED 11:33
DX: L03.213 Periorbital cellulitis (principal); E03.9 Hypothyroidism, unspecified; Z79.899 Other long term (current) drug therapy; R56.9 Unspecified convulsions; Z88.8 Allergy status to other drugs, medicaments and biological substances
CPT/HCPCS: 36415; 70487; 80053; 83605; 84145; 85025; 86140; 99283; 99284; J7050; Q9967

== ENCOUNTER 2020-06-09 06:48 | Day surgery (SDC) | payer MEDICARE, MEDICAID ==
[2020-06-09] MEDS ORDERED: Midazolam 1 MG/ML 2 ML SDV ONE (07:22)
[2020-06-09] MEDS ORDERED: Propofol 200 MG/20 ML SDV ONE ×2 (07:23→08:36)
[2020-06-09] MEDS ORDERED: Sodium Chloride 0.9% 1,000 ML IV SCH (07:30)
[2020-06-09 10:15] VITALS: BP 132/96; PULSE 82
--- NOTE | 2020-06-09 12:31 | OR ---
DATE OF PROCEDURE: 06/09/2020 SURGEON: Hay Betancourt MD PROCEDURE: Colonoscopy. FINDINGS: 1. Transverse colon polyp, approximately 5 mm, completely removed using cold biopsy forceps. 2. Plaque-like lesion/sessile type lesion at 35 cm. 3. Sigmoid colon polyp, approximately 5 mm, completely removed using hot snare wire device. COMPLICATIONS: None. SLOT OPERATIONS MANAGER: None. ANESTHETIC: MAC. PREOPERATIVE DIAGNOSIS: Screening colonoscopy. POSTOPERATIVE DIAGNOSIS: Screening colonoscopy. RISKS: Risks, benefits, alternatives, and limitations including but not limited to infection, bleeding, perforation, and false positives and false negatives were explained to the patient who wished to proceed. PROCEDURE IN DETAIL: The patient was placed in left lateral decubitus position. Digital rectal exam was performed, which showed an external hemorrhoid tag. Scope was introduced and advanced atraumatically to the ileocecal valve. A photo was taken. The scope was brought back through the ascending, transverse, and descending colon and retroflexed. The aforementioned polyps were identified and completely removed as described above. No abnormal bleeding was noted after the removal. No diverticulosis. No colitis. No abnormalities on retroflexed. With respect to the lesion at 35 cm, this was a plaque-like lesion approximately 5 cm in size on narrow band imaging. This had a cobblestone type appearance. This was biopsied multiple times using cold biopsy forceps. Aline ink was also used to tattoo immediately distal to this lesion. Prep was acceptable. Approximately 85% to 90% of the luminal surface could be seen. Greater than 10 minutes was spent removing the scope. The patient tolerated the procedure well. Thank. Hay Betancourt MD /[id number]
== END 2020-06-09 10:31 ==
LOC: JP.SDS 06:48
PROVIDERS: ATTEND Surgery
DX: Z12.11 Encounter for screening for malignant neoplasm of colon (principal); D12.3 Benign neoplasm of transverse colon; D12.5 Benign neoplasm of sigmoid colon; Z88.8 Allergy status to other drugs, medicaments and biological substances
CPT/HCPCS: 45380; 45381; 45385; J2250; J2704; J7030; 88305

== ENCOUNTER 2021-05-07 13:29 | Emergency (ER) | payer MEDICARE, MEDICAID ==
[2021-05-07 13:49] VITALS: BP 156/84; PULSE 99
[2021-05-07] MEDS ORDERED: Sodium Chloride 0.9% 10 ML Syringe FLUSH PRN ×2 (14:00)
[2021-05-07] MEDS ORDERED: Sodium Chloride 0.9% 10 ML Syringe FLUSH ONE (14:13)
[2021-05-07] MEDS ORDERED: Iopamidol 755 Mg/ML 100 ML Bottle IV SCH (14:15)
[2021-05-07] MEDS ORDERED: Sodium Chloride 0.9% 100 ML IV SCH (14:15)
== END 2021-05-07 16:30 | disposition home or self-care (01) ==
LOC: JP.ED 13:29
DX: R53.1 Weakness (principal); G40.909 Epilepsy, unspecified, not intractable, without status epilepticus; E03.9 Hypothyroidism, unspecified; Z79.899 Other long term (current) drug therapy; Z88.8 Allergy status to other drugs, medicaments and biological substances
CPT/HCPCS: 36415; 70450; 70450-26; 70496; 70496-26; 70498; 70498-26; 80053; 80177; 82947; 83605; 84484; 85025; 93005; 93010; 99282; 99285-25; Q9967

== ENCOUNTER 2022-08-22 09:18 | Emergency (ER) | payer MEDICARE, MEDICAID ==
[2022-08-22 10:56] VITALS: BP 108/58; PULSE 90
== END 2022-08-22 11:31 | disposition home or self-care (01) ==
LOC: JP.ED 09:18
DX: M54.50 Low back pain, unspecified (principal); M81.0 Age-related osteoporosis without current pathological fracture; G40.909 Epilepsy, unspecified, not intractable, without status epilepticus; E03.9 Hypothyroidism, unspecified; Z79.899 Other long term (current) drug therapy; Z88.8 Allergy status to other drugs, medicaments and biological substances
CPT/HCPCS: 99283